=== PATIENT | female | born 1995 | race Hispanic/Latino ===

== ENCOUNTER 2022-04-07 10:21 | Outpatient (CLI) | payer MEDICAID, OTHER ==
[2022-04-07 11:10] LABS: #Eosinphils 0.1 10x3/uL (0.0-0.5); #Monocytes 0.5 10x3/uL (0.0-1.1); #Neutrophils 5.1 10x3/uL (1.5-8.4); %Basophils 0.5 % (0.0-2.0); %Eosinophils 1.1 % (0.0-6.0); %Lymphocytes 26.6 % (18.0-47.0); %Monocytes 6.7 % (0.0-10.0); %Neutrophils 64.7 % (40.0-75.0); Hemoglobin 12.9 g/dL (12.0-15.5); Mean Corpuscular Hemoglobin 29.3 pg (27.0-33.0); Mean Corpuscular Volume 88.7 fl (81.6-98.3); Mean Platelet Volume 9.8 fl (7.4-10.4); Platelet Count 298 10x3/uL (150-450); RBC Distribution Width 16.3 % (11.5-14.5); Red Blood Cell (RBC) Count 4.41 10x6/uL (3.90-5.03); White Blood Cell (WBC) Count 7.9 10x3/uL (3.5-10.5)
[2022-04-07 11:33] LABS: BHCG - Serum Negative (NEGATIVE); Pregs Control Background? CLEAR/WHITE (CLR/WHITE); Pregs Control Bar Appear? YES (CONTROL BAR)
[2022-04-07 11:41] LABS: Anion Gap 16 mmol/L (10-20); BUN (Urea Nitrogen) 13 mg/dL (7.0-18.7); Calc. Creatinine Clearance 0 mL/min (70-130); Calcium 8.8 mg/dL (7.8-10.44); Carbon Dioxide 25 mmol/L (22-29); Chloride 102 mmol/L (98-107); Estimated GFR 114; Glucose 92 mg/dL (70-105); Potassium 3.7 mmol/L (3.5-5.1); Sodium 139 mmol/L (136-145)
== END 2022-04-07 10:22 | disposition home or self-care (01) ==
LOC: LABBT 10:21
PROVIDERS: ATTEND Specialist
DX: Z01.818 Encounter for other preprocedural examination (principal); K42.9 Umbilical hernia without obstruction or gangrene
CPT/HCPCS: 80048; 84703; 85025; 93005; 93010

== ENCOUNTER 2022-04-14 05:49 | Day surgery (SDC) | payer OTHER ==
[2022-04-13 15:14] VITALS: BMI 45.0
[2022-04-14] MEDS ORDERED: Midazolam HCl 2 mg/2 ml Vial ONE (06:40)
[2022-04-14] MEDS ORDERED: Fentanyl 250 MCG/5 ML VIAL ONE (06:40)
[2022-04-14] MEDS ORDERED: Bupivacaine/Epinephrine 0.25% 30 ML VIAL ONE (06:52)
[2022-04-14] MEDS ORDERED: Ketorolac Tromethamine 30 MG/ML VIAL ONE (06:55)
[2022-04-14] MEDS ORDERED: Acetaminophen 500 MG TAB ONE (06:55)
[2022-04-14] MEDS ORDERED: Sodium Chloride 0.9% 100 ML ONE (08:20)
[2022-04-14] MEDS ORDERED: CEFAZOLIN 2 GM VIAL ONE (08:20)
[2022-04-14] MEDS ORDERED: Phenylephrine 10 MG/ML VIAL ONE (08:43)
[2022-04-14] MEDS ORDERED: PROPOFOL 200 MG/20 ML VIAL ONE (08:43)
[2022-04-14] MEDS ORDERED: GLYCOPYRROLATE/PF 0.2 MG/ML VIAL ONE (08:43)
[2022-04-14] MEDS ORDERED: Dexamethasone 20 MG/5 ML VIAL ONE (08:43)
[2022-04-14] MEDS ORDERED: Ondansetron PF 4 MG/2 ML Vial ONE ×2 (08:43→11:13)
[2022-04-14] MEDS ORDERED: Rocuronium Bromide 10 MG/ML (10ML VIAL) ONE (08:43)
[2022-04-14] MEDS ORDERED: NEOSTIGMINE 3 MG/3 ML SYR 3 MG/3 ML SYRINGE ONE (08:43)
[2022-04-14] MEDS ORDERED: FENTANYL 50 MCG/ML 1 ML VIAL ONE ×3 (10:38→11:34)
== END 2022-04-14 13:02 | disposition home or self-care (01) ==
LOC: SDC 05:49
PROVIDERS: ATTEND Specialist
DX: K43.6 Other and unspecified ventral hernia with obstruction, without gangrene (principal); K66.0 Peritoneal adhesions (postprocedural) (postinfection); I10 Essential (primary) hypertension; J45.909 Unspecified asthma, uncomplicated; E03.9 Hypothyroidism, unspecified; Q90.9 Down syndrome, unspecified; F79 Unspecified intellectual disabilities; E66.9 Obesity, unspecified; Z68.42 Body mass index [BMI] 45.0-49.9, adult; Z79.890 Hormone replacement therapy; Z79.899 Other long term (current) drug therapy
CPT/HCPCS: C1781; J1100; J1885; J2250; J2370; J2405; J2704; J3010; J3490